=== PATIENT | female | born 1970 | race Two or more races ===

== ENCOUNTER 2024-06-22 18:34 | Emergency (ER) | payer OTHER ==
[~2024-06-22] VITALS: Ht 154.9 cm; Wt 62.1 kg
[2024-06-22] MEDS ORDERED: SIMVASTATIN80 MG PO (18:54)
[2024-06-22] MEDS ORDERED: FAMOTIDINE/PF 20 MG/2 ML VIAL ONE (19:09)
[2024-06-22] MEDS ORDERED: ONDANSETRON HCL 2 MG/ML VIAL ONE (19:09)
[2024-06-22] MEDS ORDERED: ONDANSETRON HCL 2 MG/ML VIAL IV ONE (19:15)
[2024-06-22] MEDS ORDERED: 0.9 % SODIUM CHLORIDE 1,000 ML IV ONE (19:15)
[2024-06-22] MEDS ORDERED: FAMOtidine 10 MG/ML (4ML VIAL) IV ONE (19:15)
[2024-06-22] MEDS ORDERED: BUTALB/ACETAMINOPHEN/CAFFEINE 1 TAB TABLET PO ONE ×2 (19:57→20:00)
[2024-06-22 20:27] LABS: PARTIAL THROMBOPLASTIN TIME 25.9 SECONDS (22.0-34.0); PROTHROMBIN TIME 10.9 SECONDS (9.0-11.5)
[2024-06-22 20:31] LABS: HEMATOCRIT 33.9 % (36.0-45.00); HEMOGLOBIN 11.3 g/dL (12.0-15.00); MEAN CELL VOLUME 92.7 fL (80.00-100.00); MEAN CORPUSCULAR HEMOGLOBIN 30.8 pg (27.00-32.0); MEAN CORPUSCULAR HGB CONC 33.3 g/dl (32.0-36.0); PLATELET COUNT 217 K/uL (150-450); RED BLOOD COUNT 3.65 M/uL (4.00-6.00); RED CELL DISTRIBUTION WIDTH 13.9 % (11.5-14.5)
[2024-06-22 20:33] LABS: ALBUMIN 4.2 gm/dL (3.4-5.0); BILIRUBIN TOTAL 0.64 mg/dL (0.3-1.2); CALCIUM 9.3 mg/dL (8.5-10.1); CREATININE SERUM 0.79 mg/dL (0.55-1.02); GFR 75.56; GLOBULINA 3.8 G/DL (2.4-3.5); POTASSIUM 3.96 mEq/L (3.5-5.1)
[2024-06-22] MEDS ORDERED: OSEL75CA PO (21:05)
[2024-06-22] MEDS ORDERED: PEPCID AC20 MG PO (21:05)
[2024-06-22] MEDS ORDERED: ZOFRAN8 MG PO (21:05)
== END 2024-06-22 21:30 | disposition home or self-care (01) ==
LOC: ER 18:36
PROVIDERS: General Practice
DX: J10.1 Influenza due to other identified influenza virus with other respiratory manifestations (principal); R11.10 Vomiting, unspecified; Z88.8 Allergy status to other drugs, medicaments and biological substances; E78.00 Pure hypercholesterolemia, unspecified; Z20.822 Contact with and (suspected) exposure to COVID-19
CPT/HCPCS: 36415; 71045; 96365; 99283; J2405; J3490; J7030 ×2